=== PATIENT | male | born 1955 | race Caucasian/White ===

== ENCOUNTER 2022-12-06 06:30 | Outpatient (CLI) | payer MEDICARE, SELFPAY | END 2022-12-06 06:31 | disposition home or self-care (01) | LOC: RT 06:32 | PROVIDERS: PCP Family Medicine; Visit Provider Family Medicine | DX: R06.00 Dyspnea, unspecified (principal) | CPT/HCPCS: 94010; 94729 ==

== ENCOUNTER 2023-12-11 12:18 | Outpatient (CLI) | payer MEDICARE, SELFPAY | END 2023-12-11 12:19 | disposition home or self-care (01) | LOC: RT 12:19 | PROVIDERS: PCP Family Medicine; Visit Provider Family Medicine | DX: J44.9 Chronic obstructive pulmonary disease, unspecified (principal) | CPT/HCPCS: 94010; 94726; 94729 ==

== ENCOUNTER 2024-07-22 20:00 | Outpatient (CLI) | payer MEDICARE, SELFPAY | END 2024-07-22 20:01 | disposition home or self-care (01) | LOC: SLEEP 22:19 | PROVIDERS: PCP Family Medicine; Visit Provider Family Medicine | DX: G47.33 Obstructive sleep apnea (adult) (pediatric) (principal) | CPT/HCPCS: 95810 ==

== ENCOUNTER → 2024-08-03 09:28 | Outpatient (BNVA) | payer MEDICARE, SELFPAY | PROVIDERS: PCP Family Medicine; Visit Provider Dermatology | DX: C44.91 Basal cell carcinoma of skin, unspecified (principal); L57.8 Other skin changes due to chronic exposure to nonionizing radiation; D23.61 Other benign neoplasm of skin of right upper limb, including shoulder; L81.4 Other melanin hyperpigmentation; S50.311A Abrasion of right elbow, initial encounter; X58.XXXA Exposure to other specified factors, initial encounter; L57.0 Actinic keratosis | CPT/HCPCS: 17000; 99203 ==

== ENCOUNTER → 2024-09-01 07:43 | Outpatient (BNVA) | payer MEDICARE, SELFPAY | PROVIDERS: PCP Family Medicine; Visit Provider Dermatology | DX: C44.41 Basal cell carcinoma of skin of scalp and neck (principal) | CPT/HCPCS: 99213 ==

== ENCOUNTER → 2024-09-21 10:55 | Outpatient (BNVA) | payer MEDICARE, SELFPAY | PROVIDERS: PCP Family Medicine; Visit Provider Dermatology | DX: C44.41 Basal cell carcinoma of skin of scalp and neck (principal) | CPT/HCPCS: 99213 ==

== ENCOUNTER → 2024-10-05 10:56 | Outpatient (BNVA) | payer MEDICARE, SELFPAY | PROVIDERS: PCP Family Medicine; Visit Provider Dermatology | DX: C44.41 Basal cell carcinoma of skin of scalp and neck (principal) | CPT/HCPCS: 99213 ==

== ENCOUNTER → 2024-10-19 10:10 | Outpatient (BNVA) | payer MEDICARE, SELFPAY | PROVIDERS: PCP Family Medicine; Visit Provider Dermatology | DX: C44.41 Basal cell carcinoma of skin of scalp and neck (principal) | CPT/HCPCS: 99213 ==

== ENCOUNTER → 2025-03-31 07:02 | Outpatient (BNVA) | payer MEDICARE, SELFPAY | PROVIDERS: PCP Family Medicine; Visit Provider Podiatrist Foot & Ankle Surgery | DX: M21.371 Foot drop, right foot (principal); M21.372 Foot drop, left foot; R26.9 Unspecified abnormalities of gait and mobility; M54.10 Radiculopathy, site unspecified | CPT/HCPCS: 99204 ==